=== PATIENT | male | born 1970 | race Caucasian/White ===

== ENCOUNTER 2018-10-12 00:31 | Observation (INO) ==
[2018-10-12] MEDS ORDERED: Isovue-370 500 ML BOTTLE IVP ONE ×2 (00:54→02:39)
[2018-10-12] MEDS ORDERED: 0.9 % Sodium Chloride 1,000 ML IVC ONE ×2 (00:54→02:40)
[2018-10-12 01:54] LABS: Basophils # 0.2 K/mcL (0.0-0.2); Basophils % 0.9 %; Eosinophils # 0.1 K/mcL (0.0-0.6); Eosinophils % 0.3 %; Hematocrit 34.8 % (37.5-50.1); Hemoglobin 11.8 g/dL (12.9-16.9); Immature Granulocytes % 0.8 % (0-4); Lymphocytes # 1.3 K/mcL (0.6-4.6); Lymphocytes % 7.7 %; Mean Corpuscular HGB Conc 33.9 g/dL (31.6-35.5); Mean Corpuscular Hemoglobin 29.1 pg (28.0-33.3); Mean Corpuscular Volume 85.9 fL (83.0-100.0); Monocytes # 1.3 K/mcL (0.0-1.3); Monocytes % 7.5 %; Neutrophils # 14.3 K/mcL (1.6-8.9); Platelet Count 401 K/mcL (140-400); Red Blood Count 4.05 M/mcL (4.19-5.50); Red Cell Distribution Width 17.2 % (11.5-14.5); Segmented Neutrophils % 82.8 %; White Blood Count 17.3 K/mcL (4.3-11.1)
--- NOTE | 2018-10-12 02:01 | Emergency Department Note ---
Disposition Clinical Impression: Recurrent syncope, Elevated serum creatinine, Leukocytosis, Dehydration Disposition: Admitted As Inpatient Condition: Fair Referrals: NONE,PCP [Primary Care Provider] - Forms: ED Satisfaction Letter Time of Disposition: 05:13 General Adult HPI - General Chief complaint: ED Seizure Stated complaint: Seizure Time Seen by Provider: 10/12/18 00:46 Source: patient Mode of arrival: EMS Limitations: no limitations Nursing Notes Reviewed: Yes Vital Signs Reviewed: Yes - History of Present Illness HPI Narrative: Patient presents emergency Department with reports that he passed out twice today. 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 He states he was outside all day long in the hot sun and did not eat or drink anything and then started to feel lightheaded and states that he passed out twice. He denies any significant symptoms currently. He states that he has a history of seizures but does not know what seizure medications he takes an states that he did not have a seizure today. He did not bite his tongue did not lose continence he denies headache neck pain chest pain shortness of breath abdominal pain fevers chills cough sputum production black or bloody stool. Denies any diarrhea denies any urinary changes. Denies any other acute concerns. He denies any focal numbness or weakness. States that right now he feels better. Pain Scale: 10 - Related Data Allergies Allergy/AdvReac Type Severity Reaction Status Date / Time No Known Allergies Allergy Verified 10/12/18 02:04 All systems ED: reviewed and negative except as stated. Review of Systems: As Per HPI Past Medical History - Past Medical History Medical history: Reports: asthma, COPD, hyperlipidemia, hypertension, seizures Psychiatric history: Reports: no psych history - Social History Smoking Status: Current every day smoker Smokeless Tobacco Status: No Alcohol use: Reports: none Drug use: Reports: none Physical Exam - General Limitations: no limitations General appearance: alert, in no apparent distress - Head Head exam: atraumatic, normocephalic - Eye Eye exam: Present: normal appearance, PERRL, EOMI. Absent: scleral icterus - ENT ENT exam: normal exam, normal oropharynx - Neck Neck exam: Present: normal inspection, full ROM - Chest Chest inspection: Present: normal inspection, symmetric chest wall rise - Respiratory Respiratory exam: Present: normal lung sounds bilaterally. Absent: respiratory distress, wheezes - Cardiovascular Cardiovascular exam: Present: regular rate, normal rhythm, normal heart sounds. Absent: rubs, gallop - Abdominal Exam Abdominal exam: Present: soft, other (There is diffuse upper abdominal tend erness most noted in the epigastric and right upper quadrant, but also in the left upper quadrant, there is no rebound guarding or peritoneal sign there is no Gonzalez sign. There is no obvious palpable pulsatile mass the abdomen is without ecchymosis or obvious hernias.) - Extremities Exam Extremities exam: Present: normal inspection, full ROM, normal capillary refill. Absent: tenderness, pedal edema - Back Exam Back exam: Present: normal inspection, full ROM. Absent: tenderness, CVA tenderness (R), CVA tenderness (L) - Neurological Exam Neurological exam: Present: alert, oriented X3, CN II-XII intact - Psychiatric Psychiatric exam: Present: normal affect, normal mood - Skin Skin exam: Present: warm, dry, normal color. Absent: rash Course Vital Signs Temperature 98.8 F 10/12/18 00:35 Pulse Rate 98 10/12/18 00:35 Respiratory Rate 14 10/12/18 00:35 Blood Pressure 102/71 10/12/18 00:35 O2 Sat by Pulse Oximetry 99 10/12/18 00:35 Temperature 98.8 F 10/12/18 00:35 Pulse Rate 83 10/12/18 02:58 Respiratory Rate 16 10/12/18 02:58 Blood Pressure 116/80 10/12/18 02:58 O2 Sat by Pulse Oximetry 98 10/12/18 02:58 Oxygen Delivery Oxygen Delivery Room Air Medical Decision Making - [facility] Narrative Medical decision making narrative: Patient reports that he had been outside in the hot sun all day long and had not ate or drank anything he was given IV fluids the low currently has no symptoms reported to syncopal events, although these were unwitnessed and the patient states he feels fine now, secondary to unwitnessed reported syncope, 2, a head CT was ordered to rule out intracranial pathology during syncopal events, secondary to his abdominal tenderness in his upper abdomen, a CT scan abdomen and pelvis was ordered to rule out intra-abdominal process such as acute aortic pathology that would potentially cause syncope although he does not complain of abdominal pain unless you push on his abdomen. He denies chest pain or shortness of breath, EKG CBC basic metabolic profile cardiac enzymes were also ordered, for further evaluation of potential syncope although this certainly seems to most likely be dehydration related. EKG was normal sinus rhythm no evidence of acute ischemia or dysrhythmia hyperkalemia or abnormal intervals interpreted by myself. CBC demonstrated leukocytosis 17,000 without comparison. Hemoglobin was 11.8 without comparison. Platelets of 401,000. Patient found have a mildly elevated creatinine of 1.68 without comparison available. LFTs lipase lactic acid were all within acceptable limits. Cardiac enzymes were negative. Chest x-ray showed findings consistent with a possible left lower lobe infiltrate the patient has no cough no sputum production no shortness of breath no fevers but does have a mild leukocytosis he had a CT scan abdomen and pelvis, which showed abnormality near the superior mesenteric artery, recommended CT with IV contrast, he was given a second liter of IV fluids and sent for CT with IV contrast which demonstrated no occlusion no wall thickening of the superior mesenteric artery, potential incidental abnormality recommend interval follow-up to resolution. I contacted surgery talk with Dr. Nabil Lopez, regards to this finding, she states that this is most likely incidental especially in the face of the patient has no abdominal pain. She does not think his leukocytosis is likely related to this. She states that this is not require any surgical or further intervention at this time. The patient did remain completely a symptomatically relation to his abdominal pain, he does not have any, he had some mild tenderness initially but this is now resolved, and he is drinking without difficulty. It is unclear as to the etiology of this patient's two episodes of syncope, however patient states that this is never happened before, potentially related to some dehydration does have an elevated serum creatinine of unknown age, in leukocytosis of unspecified etiology, chest x-ray again showed possible left lower lobe infiltrate however he does not have symptoms of pneumonia, he did not have obvious infiltrate in the lower lobes by CT scan but this was not specifically commented on . I will treat him with oral Zithromax for possible early pneumonia. Patient will be admitted to the hospital for further evaluation and management of syncope - Lab Data Lab results reviewed: Yes I reviewed the patient's lab results. Result diagrams: 10/12/18:19 10/12/18 01:19 Lab Results 10/12/18 10/12/18 10/12/18 Range/Units :19 01:19 01:40 WBC 17.3 H (4.3-11.1) K/mcL RBC 4.05 L (4.19-5.50) M/mcL Hgb 11.8 L (12.9-16.9) g/dL Hct 34.8 L (37.5-50.1) % MCV 85.9 (83.0-100.0) fL MCH 29.1 (28.0-33.3) pg MCHC 33.9 (31.6-35.5) g/dL RDW 17.2 H (11.5-14.5) % Plt Count 401 H (140-400) K/mcL MPV 10.0 (9.4-12.4) fL Immature Gran % 0.8 (0-4) % Seg Neutrophils % 82.8 % Lymphocytes % 7.7 % Monocytes % 7.5 % Eosinophils % 0.3 % Basophils % 0.9 % Neutrophils # 14.3 H (1.6-8.9) K/mcL Lymphocytes # 1.3 (0.6-4.6) K/mcL Monocytes # 1.3 (0.0-1.3) K/mcL Eosinophils # 0.1 (0.0-0.6) K/mcL Basophils # 0.2 (0.0-0.2) K/mcL Sodium 135 L (136-145) mEq/L Potassium 3.7 (3.5-5.1) mEq/L Chloride 102 (98-107) mEq/L Carbon Dioxide 21 L (23-29) mEq/L BUN 13 (6-20) mg/dL Creatinine 1.68 H (0.70-1.30) mg/dL Est GFR ( Amer) 53 L (> 60) Est GFR (Non-Af Amer) 44 L (> 60) BUN/Creatinine Ratio 8 (6-26) Glucose 131 H (70-105) mg/dL Calculated Osmolality 282 (280-300) Lactic Acid (0.5-2.2) mmol/L Calcium 9.7 (8.6-10.3) mg/dL Total Bilirubin 0.3 (0.3-1.0) mg/dL Direct Bilirubin 0.1 (0.0-0.2) mg/dL Indirect Bilirubin 0.2 (0.0-1.2) mg/dL AST 18 (13-39) Units/L ALT 14 (7-52) Units/L Alkaline Phosphatase 52 (34-104) Units/L Troponin I < 0.03 (< 0.04) ng/mL Serum Total Protein 7.2 (6.4-8.9) g/dL Albumin 4.3 (3.5-5.7) g/dL Globulin 2.9 (2.4-3.5) g/dL Albumin/Globulin Ratio 1.5 (1.1-2.2) Lipase 17 (11-82) Units/L Urine Color Yellow (Yellow) Urine Clarity Clear (Clear) Urine pH 6.5 (5.0-8.0) pH Units Ur Specific [place] 1.013 (1.010-1.025) Urine Protein Negative (Neg-Trace) mg/dL Urine Glucose (UA) Normal (Normal) mg/dL Urine Ketones Negative (Negative) mg/dL Urine Blood Negative (Negative) Urine Nitrite Negative (Negative) Urine Bilirubin Negative (Negative) Urine Urobilinogen Normal (Normal) mg/dL Ur Leukocyte Esterase Negative (Negative) Ur Culture Indicated? NO (NO) 10/12/18 Range/Units 02:57 WBC (4.3-11.1) K/mcL RBC (4.19-5.50) M/mcL Hgb (12.9-16.9) g/dL Hct (37.5-50.1) % MCV (83.0-100.0) fL MCH (28.0-33.3) pg MCHC (31.6-35.5) g/dL RDW (11.5-14.5) % Plt Count (140-400) K/mcL MPV (9.4-12.4) fL Immature Gran % (0-4) % Seg Neutrophils % % Lymphocytes % % Monocytes % % Eosinophils % % Basophils % % Neutrophils # (1.6-8.9) K/mcL Lymphocytes # (0.6-4.6) K/mcL Monocytes # (0.0-1.3) K/mcL Eosinophils # (0.0-0.6) K/mcL Basophils # (0.0-0.2) K/mcL Sodium (136-145) mEq/L Potassium (3.5-5.1) mEq/L Chloride (98-107) mEq/L Carbon Dioxide (23-29) mEq/L BUN (6-20) mg/dL Creatinine (0.70-1.30) mg/dL Est GFR ( Amer) (> 60) Est GFR (Non-Af Amer) (> 60) BUN/Creatinine Ratio (6-26) Glucose (70-105) mg/dL Calculated Osmolality (280-300) Lactic Acid 1.6 (0.5-2.2) mmol/L Calcium (8.6-10.3) mg/dL Total Bilirubin (0.3-1.0) mg/dL Direct Bilirubin (0.0-0.2) mg/dL Indirect Bilirubin (0.0-1.2) mg/dL AST (13-39) Units/L ALT (7-52) Units/L Alkaline Phosphatase (34-104) Units/L Troponin I (< 0.04) ng/mL Serum Total Protein (6.4-8.9) g/dL Albumin (3.5-5.7) g/dL Globulin (2.4-3.5) g/dL Albumin/Globulin Ratio (1.1-2.2) Lipase (11-82) Units/L Urine Color (Yellow) Urine Clarity (Clear) Urine pH (5.0-8.0) pH Units Ur Specific [place] (1.010-1.025) Urine Protein (Neg-Trace) mg/dL Urine Glucose (UA) (Normal) mg/dL Urine Ketones (Negative) mg/dL Urine Blood (Negative) Urine Nitrite (Negative) Urine Bilirubin (Negative) Urine Urobilinogen (Normal) mg/dL Ur Leukocyte Esterase (Negative) Ur Culture Indicated? (NO)
[2018-10-12 02:17] LABS: Alanine Aminotransferase 14 Units/L (7-52); Albumin 4.3 g/dL (3.5-5.7); Albumin/Globulin Ratio 1.5 (1.1-2.2); Alkaline Phosphatase 52 Units/L (34-104); Aspartate Amino Transferase 18 Units/L (13-39); BUN/Creatinine Ratio 8 (6-26); Bilirubin,Direct 0.1 mg/dL (0.0-0.2); Bilirubin,Indirect 0.2 mg/dL (0.0-1.2); Bilirubin,Total 0.3 mg/dL (0.3-1.0); Blood Urea Nitrogen 13 mg/dL (6-20); Calcium 9.7 mg/dL (8.6-10.3); Carbon Dioxide 21 mEq/L (23-29); Chloride 102 mEq/L (98-107); Globulin 2.9 g/dL (2.4-3.5); Glucose 131 mg/dL (70-105); Lipase 17 Units/L (11-82); Osmolality,Calculated 282 (280-300); Potassium 3.7 mEq/L (3.5-5.1); Sodium 135 mEq/L (136-145); Total Protein 7.2 g/dL (6.4-8.9); Troponin I < 0.03 ng/mL (< 0.04); eGFR For African Americans 53 (> 60); eGFR For Non-African Americans 44 (> 60)
[2018-10-12 03:49] LABS: Bilirubin,Urine Negative (Negative); Blood,Urine Negative (Negative); Clarity,Urine Clear (Clear); Color,Urine Yellow (Yellow); Glucose,Urine (UA) Normal (Normal); Ketones,Urine Negative (Negative); Leukocyte Esterase,Urine Negative (Negative); Nitrite,Urine Negative (Negative); PH,Urine 6.5 pH Units (5.0-8.0); Protein,Urine Negative (Neg-Trace); Specific Gravity,Urine 1.013 (1.010-1.025); Urobilinogen,Urine Normal (Normal)
[2018-10-12] MEDS ORDERED: Azithromycin 250 MG TABLET PO ONE (05:14)
[2018-10-12] MEDS ORDERED: Naloxone 0.4 MG/ML INJ IVP PRN (08:46)
--- NOTE | 2018-10-12 08:48 | Internal Med History&Physical ---
<Flower Allne E - Last Filed: 10/12/18 13:32> Date of Encounter: 10/12/18 Time of Encounter: 08:15 Internal Medicine - H&P: HPI Chief complaint: syncope Admitted From: Home Plans for Post Hospital Care: Home History of present illness: Mr. Cordoba is a 48 year old male past medical history of seizure disorder, hypertension, hyperlipidemia, COPD. He initially presented to the ED yesterday after 2 bouts of syncope. He states that he had been out in the [place] day [place] the [employer] [place] without drinking any fluids or eating any food. He said he got lightheaded and his legs gave out from under him as he passed out. He does not call hitting his head. EKG in the ER showed normal sinus rhythm with no evidence of acute ischemia. CBC showed a initial white blood cell count of 17, hemoglobin 11.8, platelet of 41, mildly elevated creatinine 1.68, troponins negative. Chest x-ray showed findings consistent with a possible left lower lobe infiltrate although patient has not had a cough or shortness of breath or fevers. CT abdomen initially showed an abnormality of this. Mesenteric artery but on repeat imaging with contrast there is no occlusion or wall thickening of this. Mesenteric artery and after surgery was consulted they believe this is likely incidental. She was given azithromycin as well as 2 L of fluid in the ER. Redraw shows white blood cell count of 10.5, hemoglobin 11.6, hematocrit 35.5, platelets of 364, sodium 139, potassium 3.9, chloride 106, creatinine 1.31, GFR 59, glucose of 1:30, lactic acid 1.6. Patient is a nonsmoker, denies any alcohol use or drug use Patient denies any family history of heart disease, cancer, diabetes When patient was seen and examined at bedside today he states he had a slight headache and he felt weak and tired. He denied any chest pain, shortness of breath, abdominal pain, nausea, vomiting, diarrhea, cough, congestion. Past Med Surg Social Fam HX - Past Medical History Medical history: asthma, COPD, hyperlipidemia, hypertension, seizures Psychiatric history: no psych history - Social History Smoking Status: Current every day smoker Packs per day: 1/2 Smokeless Tobacco Status: No Alcohol use: none Drug use: none - Family History Paternal Grandfather Age at : 80 Hx Family Cancer: Yes Internal Medicine - H&P: Meds Allergy/AdvReac Type Severity Reaction Status Date / Time No Known Allergies Allergy Verified 10/12/18 02:04 All Systems PM: A 10-system review of systems was performed and is negative for pertinent findings except as documented above in the HPI. - Constitutional Constitutional: no chills, no fever(s), no weakness - EENT Eyes: no change in vision Ears: no decreased hearing Nose, mouth and throat: no sinus pain, no sinus pressure, no sore throat - Cardiovascular Cardiovascular ROS IM: syncope (2 times yesterday), no chest pain, no diap horesis, no edema, no palpitations - Respiratory Respiratory: no cough, no hemoptysis, no change in phlegm color - Gastrointestinal Gastrointestinal: no abdominal pain, no diarrhea, no nausea, no vomiting - Genitourinary Genitourinary ROS male: other (Did note strong smelling urine the last few days), no dysuria, no flank pain, no urinary frequency, no urinary hesitancy, no urinary urgency - Musculoskeletal Musculoskeletal ROS IM: no arthralgias, no limited range of motion, no numbness, no tingling - Integumentary Integumentary IM: no new lesions, no rash - Neurological Neurological ROS: no abnormal gait, no focal weakness, no headache(s), no vertigo - Constitutional Vitals: Temp Pulse Resp BP Pulse Ox 98.2 F 77 15 135/92 99 10/12/18 06:52 10/12/18 06:52 10/12/18 06:52 10/12/18 06:52 10/12/18 06:52 General appearance: Present: A&O X 3, no acute distress, answers questions appropriately Exam: As noted - Head Head exam: Present: atraumatic, normal inspection - Eye Eye exam: Present: PERRL. Absent: scleral icterus - ENT ENT exam: Present: mucous membranes dry - Neck Neck exam general surgery: Present: supple, trachea midline. Absent: lymphadenopathy, nuchal rigidity - Respiratory Respiratory exam: Present: CTAB. Absent: rales, rhonchi, wheezes - Cardiovascular Cardiovascular exam: Present: RRR. Absent: diastolic murmur, gallop, rubs, systolic murmur - GI/Abdominal GI/Abdominal exam: Present: normal bowel sounds, soft. Absent: rebound, tenderness - Extremities Exam Extremities exam: Present: full ROM. Absent: calf tenderness, pedal edema, tenderness - Neurological Exam Neurological exam: Present: CN II-XII intact, oriented X3, strengths equal and symetr throughout - Psychiatric Psychiatric exam: Present: normal affect, normal mood - Skin Skin exam: Present: dry, intact, warm Internal Med - H&P Results - Labs CBC & Chem 7: 10/12/18 10:10 10/12/18 10:10 Labs: Short CBC 10/12/18 Range/Units 01:19 WBC 17.3 H (4.3-11.1) K/mcL Hgb 11.8 L (12.9-16.9) g/dL Hct 34.8 L (37.5-50.1) % Plt Count 401 H (140-400) K/mcL Neutrophils # 14.3 H (1.6-8.9) K/mcL BMP 10/12/18 01:19 Sodium 135 L Potassium 3.7 Chloride 102 Carbon Dioxide 21 L BUN 13 Creatinine 1.68 H Glucose 131 H Calcium 9.7 Cardiac Enzymes 10/12/18 Range/Units 01:19 Troponin I < 0.03 (< 0.04) ng/mL Liver Function 10/12/18 Range/Units 01:19 Total Bilirubin 0.3 (0.3-1.0) mg/dL Direct Bilirubin 0.1 (0.0-0.2) mg/dL AST 18 (13-39) Units/L ALT 14 (7-52) Units/L Alkaline Phosphatase 52 (34-104) Units/L Albumin 4.3 (3.5-5.7) g/dL Urine 10/12/18 Range/Units 01:40 Urine Color Yellow (Yellow) Urine Clarity Clear (Clear) Urine pH 6.5 (5.0-8.0) pH Units Ur Specific [place] 1.013 (1.010-1.025) Urine Protein Negative (Neg-Trace) mg/dL Urine Glucose (UA) Normal (Normal) mg/dL - Impressions ITS Impressions Abdomen/Pelvis CT 10/12/18 00:53 IMPRESSION: Nonspecific inflammatory change/edema surrounds the SMA origins; evaluation is limited due to lack of IV contrast. A contrast-enhanced exam is advised to assess for any luminal or mural abnormalities. Vasculitis is a consideration but this may also be incidental. No nephroureterolithiasis or evidence of obstructive uropathy. D/ / 10/12/2018 07:44:14 Ramo hodge Interpreting Provider: Ramo Morelos Head CT 10/12/18 00:53 IMPRESSION: No acute intracranial abnormality. D/ / Danis Boykin MD / Danis Boykin MD Interpreting Provider: Danis Boykin MD Chest X-Ray 10/12/18 00:54 IMPRESSION: Possible left lower lung pneumonia. D/ / Ramo Morelos / Ramo Morelos Interpreting Provider: Ramo Morelos Abdomen/Pelvis CT 10/12/18 02:39 IMPRESSION: Stranding adjacent to the SMA origin without stenosis, wall thickening, or occlusion. Changes related to mild vasculitis are suspected; the inflammatory changes may otherwise be incidental. Consider short interval follow-up exam to document stability or resolution. Please correlate with inflammatory markers for potential vasculitis. D/ / 10/12/2018 07:58:55 Ramo hodge Interpreting Provider: Ramo Morelos - Assessment and Plan (1) Recurrent syncope Current Visit: Yes Status: Acute Assessment and plan: Most likely cause is dehydration which is evidenced by FABIAN We will also order orthostatic blood pressures as well as echo and Doppler to rule out cardiovascular nature Fluids given 2 L in ED and continued on floor Advance diet as tolerated Fall precautions (2) SIRS (systemic inflammatory response syndrome) Current Visit: Yes Status: Acute Assessment and plan: On admission patient met 1 SIRS criteria-Tachycardia Likely secondary to dehydration 2 L of fluid given Tachycardia has resolved (3) FABIAN (acute kidney injury) Current Visit: Yes Status: Acute Assessment and plan: On admission creatinine was 1.68 Patient was given 2 L of normal saline Creatinine has decreased to 1.31 and GFR is increased to 59.44 We will continue fluids This was likely secondary to dehydration due to poor oral intake (4) Pneumonia Current Visit: Yes Status: Suspected Assessment and plan: Chest x-ray showed a left lower lobe opacification Patient was started on azithromycin in the ER White blood cell count initially was 17.3 but decreased to 10.5 this was possibly due to hemoconcentration We will add Augmentin to further broaden coverage and continue azithromycin Procalcitonin was ordered and if negative we will discontinue antibiotic coverage Qualifiers: Pneumonia type: due to unspecified organism Laterality: left Lung location: lower lobe of lung Qualified Code(s): J18.1 - Lobar pneumonia, unspecified organism (5) HTN (hypertension) Current Visit: Yes Status: Acute Assessment and plan: Patient has history of hypertension Currently well controlled Qualifiers: Hypertension type: essential hypertension Qualified Code(s): I10 - Essential (primary) hypertension (6) COPD (chronic obstructive pulmonary disease) Current Visit: No Status: Chronic Assessment and plan: Patient has history of COPD Albuterol inhaler use only as needed We will continue albuterol inhaler if needed Qualifiers: COPD type: unspecified COPD Qualified Code(s): J44.9 - Chronic obstructive pulmonary disease, unspecified (7) Seizures Current Visit: No Status: Chronic Assessment and plan: Patient has a history of seizures but has not had a seizure for years Patient states that he is on medication for this but does not recall the name of the medication He states his medication starts with and "a" We will continue to monitor patient's for signs of seizures (8) DVT prophylaxis Current Visit: Yes Status: Acute Assessment and plan: ECPDs - Time Spent With Patient Total time spent is greater than 50% in coordination of care (as documented) at patient's floor/unit and/or counseling patient: <Lisa Gibson - Last Filed: 10/12/18 14:37> Date of Encounter: 10/12/18 Internal Medicine - H&P: HPI History of present illness: Mr. Cordoba is a 48 year old male All Systems PM: A 10-system review of systems was performed and is negative for pertinent findings except as documented above in the HPI. - Constitutional Vitals: Temp Pulse Resp BP Pulse Ox 98.2 F 77 15 120/80 98 10/12/18 12:20 10/12/18 12:20 10/12/18 12:20 10/12/18 12:20 10/12/18 12:20 Internal Med - H&P Results - Labs CBC & Chem 7: 10/12/18 10:10 10/12/18 10:10 Labs: Short CBC 10/12/18 10/12/18 Range/Units 01:19 10:10 WBC 17.3 H 10.5 (4.3-11.1) K/mcL Hgb 11.8 L 11.6 L (12.9-16.9) g/dL Hct 34.8 L 35.5 L (37.5-50.1) % Plt Count 401 H 364 (140-400) K/mcL Neutrophils # 14.3 H 7.8 (1.6-8.9) K/mcL BMP 10/12/18 10/12/18 01:19 10:10 Sodium 135 L 139 Potassium 3.7 3.9 Chloride 102 106 Carbon Dioxide 21 L 24 BUN 13 10 Creatinine 1.68 H 1.31 H Glucose 131 H 130 H Calcium 9.7 9.3 Cardiac Enzymes 10/12/18 Range/Units 01:19 Troponin I < 0.03 (< 0.04) ng/mL Liver Function 10/12/18 10/12/18 Range/Units 01:19 10:10 Total Bilirubin 0.3 0.4 (0.3-1.0) mg/dL Direct Bilirubin 0.1 (0.0-0.2) mg/dL AST 18 15 (13-39) Units/L ALT 14 13 (7-52) Units/L Alkaline Phosphatase 52 52 (34-104) Units/L Albumin 4.3 3.9 (3.5-5.7) g/dL Urine 10/12/18 Range/Units 01:40 Urine Color Yellow (Yellow) Urine Clarity Clear (Clear) Urine pH 6.5 (5.0-8.0) pH Units Ur Specific [place] 1.013 (1.010-1.025) Urine Protein Negative (Neg-Trace) mg/dL Urine Glucose (UA) Normal (Normal) mg/dL - Impressions ITS Impressions Abdomen/Pelvis CT 10/12/18 00:53 IMPRESSION: Nonspecific inflammatory change/edema surrounds the SMA origins; evaluation is limited due to lack of IV contrast. A contrast-enhanced exam is advised to assess for any luminal or mural abnormalities. Vasculitis is a consideration but this may also be incidental. No nephroureterolithiasis or evidence of obstructive uropathy. D/ / 10/12/2018 07:44:14 Ramo hodge Interpreting Provider: Ramo Morelos Head CT 10/12/18 00:53 IMPRESSION: No acute intracranial abnormality. D/ / Danis Boykin MD / Danis Boykin MD Interpreting Provider: Danis Boykin MD Chest X-Ray 10/12/18 00:54 IMPRESSION: Possible left lower lung pneumonia. D/ / Ramo Morelos / Ramo Morelos Interpreting Provider: Ramo Morelos Abdomen/Pelvis CT 10/12/18 02:39 IMPRESSION: Stranding adjacent to the SMA origin without stenosis, wall thickening, or occlusion. Changes related to mild vasculitis are suspected; the inflammatory changes may otherwise be incidental. Consider short interval follow-up exam to document stability or resolution. Please correlate with inflammatory markers for potential vasculitis. D/ / 10/12/2018 07:58:55 Ramo hodge Interpreting Provider: Ramo Morelos - Time Spent With Patient Total time spent is greater than 50% in coordination of care (as documented) at patient's floor/unit and/or counseling patient: - Attending Attestation I saw evaluated and examined this patient and reviewed objective data including labs and my medical decision-making was reviewed with the Resident Physician. I agree with the documented findings, disposition and treatment plan as described except to any changes set forth below. We independently had [id number] contact with the patient. Med rec pending, patient unsure of which seizure medication he takes. Likely syncope from dehydration, but concerning that his friend told him he had LOC for 10 minutes. Will consult Neurology and await med recs. Anticipate patient discharge today or tomorrow.
[2018-10-12 10:29] LABS: Basophils # 0.1 K/mcL (0.0-0.2); Eosinophils # 0.1 K/mcL (0.0-0.6); Hematocrit 35.5 % (37.5-50.1); Hemoglobin 11.6 g/dL (12.9-16.9); Immature Granulocytes % 0.4 % (0-4); Lymphocytes # 1.5 K/mcL (0.6-4.6); Lymphocytes % 14.3 %; Mean Corpuscular HGB Conc 32.7 g/dL (31.6-35.5); Mean Corpuscular Volume 88.8 fL (83.0-100.0); Mean Platelet Volume 9.6 fL (9.4-12.4); Monocytes # 0.9 K/mcL (0.0-1.3); Monocytes % 8.4 %; Neutrophils # 7.8 K/mcL (1.6-8.9); Platelet Count 364 K/mcL (140-400); Red Cell Distribution Width 17.5 % (11.5-14.5); Segmented Neutrophils % 74.9 %; White Blood Count 10.5 K/mcL (4.3-11.1)
[2018-10-12 10:42] LABS: Alanine Aminotransferase 13 Units/L (7-52); Albumin 3.9 g/dL (3.5-5.7); Albumin/Globulin Ratio 1.4 (1.1-2.2); Alkaline Phosphatase 52 Units/L (34-104); Aspartate Amino Transferase 15 Units/L (13-39); BUN/Creatinine Ratio 8 (6-26); Bilirubin,Total 0.4 mg/dL (0.3-1.0); Blood Urea Nitrogen 10 mg/dL (6-20); Calcium 9.3 mg/dL (8.6-10.3); Carbon Dioxide 24 mEq/L (23-29); Chloride 106 mEq/L (98-107); Globulin 2.8 g/dL (2.4-3.5); Glucose 130 mg/dL (70-105); Osmolality,Calculated 289 (280-300); Potassium 3.9 mEq/L (3.5-5.1); Sodium 139 mEq/L (136-145); Total Protein 6.7 g/dL (6.4-8.9); eGFR For African Americans > 60 (> 60); eGFR For Non-African Americans 59 (> 60)
[2018-10-12] MEDS: Acetaminophen 325 MG TABLET PO PRN (11:05)
[2018-10-12] MEDS: 0.9 % Sodium Chloride 1,000 ML IVC SCH ×2 (11:10→22:03)
[2018-10-12] MEDS ORDERED: Azithromycin 250 MG TABLET PO SCH (13:45)
[2018-10-12 16:55] LABS: Bilirubin,Urine Negative (Negative); Blood,Urine Negative (Negative); Clarity,Urine Clear (Clear); Color,Urine Yellow (Yellow); Glucose,Urine (UA) Normal (Normal); Ketones,Urine Negative (Negative); Leukocyte Esterase,Urine Negative (Negative); Nitrite,Urine Negative (Negative); PH,Urine 6.5 pH Units (5.0-8.0); Protein,Urine Negative (Neg-Trace); Specific Gravity,Urine 1.018 (1.010-1.025); Urobilinogen,Urine Normal (Normal)
[2018-10-12 17:22] LABS: Amphetamine Screen,Urine Negative ng/mL (Cutoff=1000); Barbiturate Screen,Urine Negative ng/mL (Cutoff=200); Benzodiazepines Screen,Urine Negative ng/mL (Cutoff=200); Cannabinoid Screen,Urine Positive ng/mL (Cutoff = 50); Cocaine Screen,Urine Negative ng/mL (Cutoff= 300); Opiate Screen,Urine Negative ng/mL (Cutoff=300); Phencyclidine Screen,Urine Negative ng/mL (Cutoff=25)
[2018-10-13 02:26] LABS: Basophils # 0.1 K/mcL (0.0-0.2); Basophils % 1.3 %; Eosinophils # 0.2 K/mcL (0.0-0.6); Eosinophils % 3.9 %; Hematocrit 33.4 % (37.5-50.1); Hemoglobin 10.8 g/dL (12.9-16.9); Immature Granulocytes % 0.3 % (0-4); Lymphocytes # 2.2 K/mcL (0.6-4.6); Lymphocytes % 36.3 %; Mean Corpuscular HGB Conc 32.3 g/dL (31.6-35.5); Mean Corpuscular Hemoglobin 28.6 pg (28.0-33.3); Mean Corpuscular Volume 88.4 fL (83.0-100.0); Mean Platelet Volume 10.1 fL (9.4-12.4); Monocytes # 0.7 K/mcL (0.0-1.3); Monocytes % 11.8 %; Neutrophils # 2.9 K/mcL (1.6-8.9); Platelet Count 373 K/mcL (140-400); Red Blood Count 3.78 M/mcL (4.19-5.50); Red Cell Distribution Width 17.7 % (11.5-14.5); Segmented Neutrophils % 46.4 %; White Blood Count 6.2 K/mcL (4.3-11.1)
[2018-10-13 02:46] LABS: Alanine Aminotransferase 11 Units/L (7-52); Albumin 3.6 g/dL (3.5-5.7); Albumin/Globulin Ratio 1.3 (1.1-2.2); Alkaline Phosphatase 48 Units/L (34-104); Aspartate Amino Transferase 12 Units/L (13-39); BUN/Creatinine Ratio 12 (6-26); Bilirubin,Total 0.3 mg/dL (0.3-1.0); Blood Urea Nitrogen 14 mg/dL (6-20); Calcium 8.9 mg/dL (8.6-10.3); Carbon Dioxide 22 mEq/L (23-29); Chloride 111 mEq/L (98-107); Globulin 2.7 g/dL (2.4-3.5); Glucose 101 mg/dL (70-105); Osmolality,Calculated 289 (280-300); Potassium 3.6 mEq/L (3.5-5.1); Sodium 139 mEq/L (136-145); Total Protein 6.3 g/dL (6.4-8.9); eGFR For African Americans > 60 (> 60); eGFR For Non-African Americans > 60 (> 60)
[2018-10-13] MEDS: Acetaminophen 325 MG TABLET PO PRN (04:03)
[2018-10-13 07:16] VITALS: BP 141/96
[2018-10-13] MEDS ORDERED: NIFEdipine XL (24 HR) 30 MG TAB.ER.24 PO SCH (09:00)
[2018-10-13] MEDS ORDERED: Fenofibrate 54 MG TABLET PO SCH (09:00)
[2018-10-13] MEDS ORDERED: Magnesium Oxide 400 MG TABLET PO SCH (09:00)
[2018-10-13] MEDS ORDERED: (Ezetimibe 10 MG) PO SCH (09:00)
[2018-10-13] MEDS ORDERED: Perflutren Lipid Microsphere 1.3 ML in 0.9 % Sodium Chloride 8.7 ML IVP ONE (09:35)
--- NOTE | 2018-10-13 11:30 | Neurology - Consult Note ---
Date of Encounter: 10/13/18 Time of Encounter: 11:26 Assessment and Plan (1) Recurrent syncope Current Visit: Yes Status: Acute These are likely syncopal episodes although the reported episodes are rather prolonged. There is no tongue biting and no urinary incontinence associated with the spells. CT of head shows no acute intracranial abnormality. Patient has nonfocal neurological examination. Patient reports history of recurrent seizures however, history is somewhat unreliable and he certainly would need further outpatient evaluation for possible epileptic syndrome. We will like to recommend him to follow-up in neurology clinic in the next few days after discharge. Before seizure workup is complete I would not recommend antiepileptic therapy at this time. Patient can be discharged home from neurology perspective. History of Present Illness Chief complaint: Blackout 2 HPI: Mr. Cordoba is a 48 year old male with past medical history significant for seizure disorder who developed blackout spells 2. Patient was working out in the field all day long without drinking or eating patient states that he blacked out twice. He states that he was out for 10 minutes witnessed by his friend. Then he mentions that he has history of seizures but he has never seen a neurol ogist. He describes his seizures as shaking activity associated with tongue biting and urinary incontinence. He states that his last seizure occurred last year and that he used to have 3-4 seizures a year. But he still drives. He states that his mother told him that he had seizures when he was younger. He was told that he has brain tumor with the size of a pea. At the time of this interview, patient neurological status return to normal. Past Med Surg Social Fam HX - Past Medical History Medical history: asthma, COPD, hyperlipidemia, hypertension, seizures Psychiatric history: no psych history - Social History Smoking Status: Current every day smoker Packs per day: 1/2 Smokeless Tobacco Status: No Alcohol use: none Drug use: none - Family History Paternal Grandfather Age at : 80 Hx Family Cancer: Yes Medications and Allergies Albuterol Sulfate [Proair Respiclick] 2 puff IH TID PRN 10/12/18 [History] Amitriptyline HCl 150 mg PO HS 10/12/18 [History] Ezetimibe 10 mg PO DAILY 10/12/18 [History] Fenofibrate Nanocrystallized [Fenofibrate] 160 mg PO DAILY 10/12/18 [History] Losartan Potassium 100 mg PO DAILY 10/12/18 [History] Magnesium Oxide 400 mg PO DAILY 10/12/18 [History] NIFEdipine [Nifedipine ER] 30 mg PO DAILY 10/12/18 [History] Naproxen 500 mg PO BID 10/12/18 [History] Ondansetron HCl 4 mg PO Q6H PRN 10/12/18 [History] Paliperidone Palmitate [Invega Trinza] 546 mg IM [id number] 10/12/18 [History] Pantoprazole Sodium [Protonix] 40 mg PO BID 10/12/18 [History] Sucralfate [Carafate] 10 ml PO QID 10/12/18 [History] Allergy/AdvReac Type Severity Reaction Status Date / Time No Known Allergies Allergy Verified 10/12/18 17:05 All Systems: The remainder of the systems were reviewed and are negative - Constitutional Constitutional ROS IM: as per HPI - Nose, Mouth, Throat Nose, mouth and throat: abnormal hearing (no) - Cardiovascular Cardiovascular ROS IM: chest pain (no), chest pain at rest (no) - Respiratory Respiratory IM: cough (no), dyspnea (no) - Gastrointestinal Gastrointestinal: abdominal pain (no) - Musculoskeletal Musculoskeletal ROS IM: abnormal gait (no) - Neurological Neurological ROS: abnormal gait (non), syncope (no) - Psychiatric Psychiatric general PM: abnormal sleep pattern (no), anhedonia (no), auditory hallucinations (no) - Endocrine Endocrine IM: change in body appearance (no) - Hematologic/Lymphatic Hematologic/Lymphatic pediatric: easy bleeding (no) - Allergic/Immunologic Allergic/Immunologic ROS PM: tongue swelling (no) Physical Examination - Vital Signs Vital Signs: Initial Vital Signs Temp Pulse Resp BP Pulse Ox 98.8 F 98 14 102/71 99 10/12/18 00:35 10/12/18 00:35 10/12/18 00:35 10/12/18 00:35 10/12/18 00:35 - Constitutional General appearance: comfortable - Neurologic Sensorimotor examination: intact Detailed motor examination: full strength in all major muscle groups Motor examination - right side: 5/5: deltoids, biceps, triceps, wrist flexion, wrist extension, web development intern, hip flexors, tibialis Anterior, quadriceps, toe extension (EHL), plantarflexion Motor examination - left side: 5/5: deltoids, biceps, triceps, wrist flexion, wrist extension, hip flexors, web development intern, quadriceps, tibialis Anterior, toe extension (EHL), plantarflexion Detailed sensory examination: intact Posture: other (none) Reflexes: Biceps: 2+, Triceps: 2+, Brachioradialis: 2+, Patella: 2+, Achilles: 2+ Mental Status Examination: awake, alert, oriented to person, oriented to place, oriented to time, follows commands appropriately, answers questions appropriately, no agnosia, no aphasia, no aproxia Cranial nerve examination: PERRL, EOMI, visual peña intact, corneal reflexes brisk symmetrically, sensory to face intact, mastication intact, no facial asymmetry is present, no dysarthria, hearing is intact symmetrically, soft palate elevates bilaterally upon phonation, gag reflex intact, flexes SCM and trapezius muscles symmetrically with full power, tongue protrudes midline, no atrophy or facial fasiculations present Results - Laboratory Findings CBC and BMP: 10/13/18 01:13 10/13/18 01:13 Abnormal lab findings: Abnormal lab results WBC 17.3 K/mcL (4.3-11.1) H 10/12/18 01:19 RBC 3.78 M/mcL (4.19-5.50) L 10/13/18 01:13 Hgb 10.8 g/dL (12.9-16.9) L 10/13/18 01:13 Hct 33.4 % (37.5-50.1) L 10/13/18 01:13 RDW 17.7 % (11.5-14.5) H 10/13/18 01:13 Plt Count 401 K/mcL (140-400) H 10/12/18 01:19 Neutrophils # 14.3 K/mcL (1.6-8.9) H 10/12/18 01:19 Sodium 135 mEq/L (136-145) L 10/12/18 01:19 Chloride 111 mEq/L (98-107) H 10/13/18 01:13 Carbon Dioxide 22 mEq/L (23-29) L 10/13/18 01:13 Creatinine 1.31 mg/dL (0.70-1.30) H 10/12/18 10:10 Est GFR ( Amer) 53 (> 60) L 10/12/18 01:19 Est GFR (Non-Af Amer) 59 (> 60) L 10/12/18 10:10 Glucose 130 mg/dL (70-105) H 10/12/18 10:10 AST 12 Units/L (13-39) L 10/13/18 01:13 Serum Total Protein 6.3 g/dL (6.4-8.9) L 10/13/18 01:13 U Marijuana (THC) Screen Positive ng/mL (Cutoff = 50) H 10/12/18 15:20 - Diagnostic Findings Additional findings: CT OF THE HEAD WITH CONTRAST 10/12/2018 2:20 am TECHNIQUE: CT of the head/brain was performed with the administration of intravenous contrast. Multiplanar reformatted images are provided for review. Dose modulation, iterative reconstruction, and/or weight based adjustment of the mA/kV was utilized to reduce the radiation dose to as low as reasonably achievable. COMPARISON: None. HISTORY: ORDERING SYSTEM PROVIDED HISTORY: headache twitching FINDINGS: BRAIN/VENTRICLES: There is no acute intracranial hemorrhage, mass effect or midline shift. No abnormal extra-axial fluid collection. The bae-white differentiation is maintained without evidence of an acute infarct. There is no evidence of hydrocephalus. ORBITS: The visualized portion of the orbits demonstrate no acute abnormality. SINUSES: The visualized paranasal sinuses and mastoid air cells demonstrate no acute abnormality. SOFT TISSUES/SKULL: No acute abnormality of the visualized skull or soft tissues. IMPRESSION: No acute intracranial abnormality. D/ / Danis Boykin MD / Danis Boykin MD Interpreting Provider: Danis Boykin MD NDUM: Please disregard mention of contrast as no contrast was administered. D/ / Danis Boykin MD / Danis Boykin MD Interpreting Provider: Danis Boykin MD R #: [id number] CT/CT head/brain w con IMPRESSION: No acute intracranial abnormality. D/ / Danis Boykin MD / Danis Boykin MD Interpreting Provider: Danis Boykin MD Consult Discharge Plan - Plan Referrals: NONE,PCP [Primary Care Provider] -
--- NOTE | 2018-10-13 11:55 | Discharge Summary ---
<Flower Allen E - Last Filed: 10/13/18 12:53> Date of Encounter: 10/13/18 Time of Encounter: 09:45 - Discharge Diagnosis (1) Recurrent syncope Priority: Primary Status: Acute Assessment and Plan: Most likely cause is dehydration which is evidenced by FABIAN We will also order orthostatic blood pressures as well as echo and Doppler to rule out cardiovascular nature Fluids given 2 L in ED and continued on floor Advance diet as tolerated Neuro on board believe most likely syncope unlikley seizures (2) SIRS (systemic inflammatory response syndrome) Priority: Primary Status: Resolved Assessment and Plan: On admission patient met 1 SIRS criteria-Tachycardia Likely secondary to dehydration 2 L of fluid given Tachycardia has resolved (3) FABIAN (acute kidney injury) Priority: Primary Status: Resolved Assessment and Plan: Likely secondary to dehydration Creatinine has improved to 1.21 from 1.31, GFR improved to 60 (4) Pneumonia Priority: Primary Status: Suspected Assessment and Plan: Tree showed a left lower lobe opacification Patient was started on azithromycin in the ER White blood cell count initially 17.3 but decreased to 10.5 closely due to hemoconcentration Antibiotics have been discontinued as per calcitonin was normal Qualifiers: Pneumonia type: due to unspecified organism Laterality: left Lung location: lower lobe of lung Qualified Code(s): J18.1 - Lobar pneumonia, unspecified organism (5) HTN (hypertension) Priority: Secondary Status: Chronic Assessment and Plan: She has history of hypertension Hypertension medications have been restarted Currently well controlled Qualifiers: Hypertension type: essential hypertension Qualified Code(s): I10 - Essential (primary) hypertension (6) COPD (chronic obstructive pulmonary disease) Priority: Secondary Status: Chronic Assessment and Plan: Patient's history of COPD Albuterol inhaler to use only as needed Continue albuterol if needed Qualifiers: COPD type: unspecified COPD Qualified Code(s): J44.9 - Chronic obstructive pulmonary disease, unspecified (7) Seizures Priority: Secondary Status: Chronic Assessment and Plan: Patient has a stated history of seizures as well as seizures in years Although patient states he is on a medication for this is Medrek does not include anything for seizures Neuro was on board for syncope and does not believes this is related to seizures at this time (8) DVT prophylaxis Priority: Secondary Status: Acute Assessment and Plan: [facility] Hospital course: Mr. Cordoba is a 48 year old male Discharge discussed with: patient - Time Spent with Patient Total time spent providing and/or coordinating discharge services: - Discharge Medications Prescriptions: Continued Albuterol Sulfate [Proair Respiclick] 2 puff IH TID PRN PRN Reason: Shortness Of Breath Amitriptyline HCl 150 mg PO HS Ezetimibe 10 mg PO DAILY Fenofibrate Nanocrystallized [Fenofibrate] 160 mg PO DAILY Losartan Potassium 100 mg PO DAILY Magnesium Oxide 400 mg PO DAILY Naproxen 500 mg PO BID NIFEdipine [Nifedipine ER] 30 mg PO DAILY Ondansetron HCl 4 mg PO Q6H PRN PRN Reason: Nausea Paliperidone Palmitate [Invega Trinza] 546 mg IM [id number] Pantoprazole Sodium [Protonix] 40 mg PO BID Sucralfate [Carafate] 10 ml PO QID Home Medications: Albuterol Sulfate [Proair Respiclick] 2 puff IH TID PRN 10/12/18 [History] Amitriptyline HCl 150 mg PO HS 10/12/18 [History] Ezetimibe 10 mg PO DAILY 10/12/18 [History] Fenofibrate Nanocrystallized [Fenofibrate] 160 mg PO DAILY 10/12/18 [History] Losartan Potassium 100 mg PO DAILY 10/12/18 [History] Magnesium Oxide 400 mg PO DAILY 10/12/18 [History] NIFEdipine [Nifedipine ER] 30 mg PO DAILY 10/12/18 [History] Naproxen 500 mg PO BID 10/12/18 [History] Ondansetron HCl 4 mg PO Q6H PRN 10/12/18 [History] Paliperidone Palmitate [Invega Trinza] 546 mg IM [id number] 10/12/18 [History] Pantoprazole Sodium [Protonix] 40 mg PO BID 10/12/18 [History] Sucralfate [Carafate] 10 ml PO QID 10/12/18 [History] Allergies/Adverse Reactions: Allergy/AdvReac Type Severity Reaction Status Date / Time No Known Allergies Allergy Verified 10/12/18 17:05 Date of admission: 10/12/18 06:23 Primary care physician: PCP NONE Consults: 10/12/18 14:36 Consult to Neurology [CONS] Routine Consulting Provider: [facility] Reason for Consult: syncopal episode/seizure Time Notified: 14:30 Call Completed: Yes Discharging clinician: Lisa Gibson Anticipated date of discharge: 10/13/18 - Constitutional Vitals: Temp Pulse Resp BP Pulse Ox 98.1 F 69 16 141/96 97 10/13/18 07:14 10/13/18 07:14 10/13/18 07:14 10/13/18 07:14 10/13/18 07:14 General appearance: Present: A&O X 3, no acute distress, answers questions appropriately Exam: As noted - Head Head exam: Present: atraumatic, normal inspection, normocephalic - ENT ENT exam: Present: mucous membranes moist - Neck Neck exam general surgery: Absent: lymphadenopathy, tenderness - Respiratory Respiratory exam: Absent: rales, rhonchi, wheezes - Cardiovascular Cardiovascular exam: Present: RRR. Absent: diastolic murmur, systolic murmur - GI/Abdominal GI/Abdominal exam: Present: normal bowel sounds. Absent: guarding, rigid, tenderness - Extremities Exam Extremities exam: Present: normal inspection. Absent: pedal edema, tenderness - Skin Skin exam: Present: dry, intact, warm - Patient Status Disposition: Home, Self-Care Condition: Good Functional capacity at discharge: independent ambulation Overall status at discharge: patient is back to baseline - Discharge Instructions Instructions: Dehydration (DC), Acute Kidney Injury (DC) Follow Up With: NONE,PCP [Primary Care Provider] - (Please call your primary care doctor tomorrow to schedule a follow up to be seen in the next 7 to 10 days. ) - Diet and Activity Activity: increase activity as tolerated Diet: advance to your usual diet <Lisa Gibson - Last Filed: 10/13/18 18:40> Date of Encounter: 10/13/18 Hospital course: Mr. Cordoba is a 48 year old male - Time Spent with Patient Total time spent providing and/or coordinating discharge services: Date of admission: 10/12/18 06:23 Primary care physician: PCP NONE Consults: 10/12/18 14:36 Consult to Neurology [CONS] Routine Consulting Provider: [facility] Reason for Consult: syncopal episode/seizure Time Notified: 14:30 Call Completed: Yes - Constitutional Vitals: Temp Pulse Resp BP Pulse Ox 98.1 F 69 16 141/96 97 10/13/18 07:14 10/13/18 07:14 10/13/18 07:14 10/13/18 07:14 10/13/18 07:14 - Attending Attestation I saw evaluated and examined this patient and reviewed objective data including labs and my medical decision-making was reviewed with the Resident Physician. I agree with the documented findings, disposition and treatment plan as described except to any changes set forth below. We independently had [id number] contact with the patient.
== END 2018-10-13 16:12 | disposition home or self-care (01) ==
LOC: EDBD → EMEROOARM 00:31 → 3BNU 00:31 → SUATTDRO 06:23 → 3BNU 06:40
PROVIDERS: ADMIT Internal Medicine; ATTEND Student in an Organized Health Care Education/Training Program